=== PATIENT | female | born 1980 | race American Indian/Alaskan Native ===

== ENCOUNTER 2024-01-19 18:00 | Inpatient (IN) | payer OTHER ==
[2024-01-19 18:27] VITALS: BMI 23.2
[2024-01-19] MEDS ORDERED: IBUPROFEN 600 MG TABLET (FP) PO PRN (19:15)
[2024-01-19] MEDS ORDERED: POLYETHYLENE GLYCOL (HEALTHYLAX) 3350 17 GM PACKET PO PRN (19:15)
[2024-01-19] MEDS ORDERED: MAG HYDROX/AL HYDROX/SIMETH 30 ML UNIT-DOSE CUP PO PRN (19:15)
[2024-01-19] MEDS ORDERED: NALOXONE (NARCAN) HCL 4 MG/0.1 ML SPRAY NS PRN (19:15)
[2024-01-19] MEDS ORDERED: IBUPROFEN 400 MG TABLET (FP) PO PRN (19:15)
[2024-01-19] MEDS ORDERED: BENZONATATE 200 MG CAPSULE PO PRN (19:15)
[2024-01-19] MEDS ORDERED: LOPERAMIDE HCL 2 MG CAPSULE PO PRN (19:15)
[2024-01-19] MEDS ORDERED: BENZOCAINE/MENTHOL (CHLORASEPTIC ) LOZENGE MM PRN (19:15)
[2024-01-19] MEDS ORDERED: hydrOXYzine PAMOATE 25 MG CAPSULE (FP) PO PRN (19:15)
[2024-01-19] MEDS ORDERED: MAGNESIUM HYDROX 2400MG/30ML ORAL SUSPENSION 30 ML CUP PO PRN (19:15)
[2024-01-19] MEDS ORDERED: guaiFENesin 600 MG TABLET.ER (FP) PO PRN (19:15)
[2024-01-19] MEDS ORDERED: ACETAMINOPHEN 325 MG TABLET (FP) PO PRN (19:15)
[2024-01-19] MEDS ORDERED: amLODIPine BESYLATE 5 MG TABLET (FP) PO ONE (20:00)
[2024-01-19] MEDS: THIAMINE 100 MG TABLET PO SCH (21:09)
[2024-01-19] MEDS: MELATONIN 5 MG TABLETS PO SCH (21:09)
[2024-01-19] MEDS: NIFEdipine E.R. 90 MG TABLET PO SCH (21:09)
[2024-01-19] MEDS: amLODIPine BESYLATE 10 MG TABLET (FP) PO SCH (21:57)
[2024-01-20] MEDS: cloNIDine HCL 0.1 MG TABLET PO ONE (07:24)
[2024-01-20] MEDS: PRENATAL VITAMINS W/ FOLIC ACID TABLET (FP) PO SCH (10:14)
[2024-01-20] MEDS: BUPRENORPHINE/NALOXONE 8 MG/2 MG FILM PACKET SL SCH (10:15)
[2024-01-20] MEDS: ASPIRIN COATED 81 MG TABLET.EC PO SCH (10:15)
[2024-01-20] MEDS ORDERED: TUBERCULIN PPD 5 TU/0.1ML VIAL ID ONE (10:17)
[2024-01-20] MEDS: METOPROLOL TARTRATE 50 MG TABLET (FP) PO ONE (22:51)
[2024-01-21 07:04] VITALS: RESP 19; TEMP 96.8
[2024-01-21 07:11] VITALS: BP 236/125; PULSE 90
[2024-01-21] MEDS: hydrALAZINE HCL 50 MG TABLET (FP) PO ONE (07:11)
== END 2024-01-21 15:35 | disposition home or self-care (01) | DRG 772 ==
LOC: YASAS 18:00 → Y5N 19:54
PROVIDERS: ADMIT Allergy & Immunology; ATTEND Psychiatry & Neurology Pain Medicine
PROC: HZ42ZZZ Group Counseling for Substance Abuse Treatment, Cognitive-Behavioral (ICD-10-PCS; principal; 2024-01-19)
DX: F14.20 Cocaine dependence, uncomplicated (principal); F17.210 Nicotine dependence, cigarettes, uncomplicated; F41.8 Other specified anxiety disorders; I12.9 Hypertensive chronic kidney disease with stage 1 through stage 4 chronic kidney disease, or unspecified chronic kidney disease; N18.9 Chronic kidney disease, unspecified; K21.9 Gastro-esophageal reflux disease without esophagitis; M54.50 Low back pain, unspecified; G89.29 Other chronic pain
CPT/HCPCS: 80305; 80307; 81025; 87811; 93005; 93010